=== PATIENT | female | born 1965 | race Caucasian/White ===

== ENCOUNTER 2019-11-26 16:07 | Inpatient (IN) | payer BC ==
[~2019-11-26] VITALS: Ht 175.3 cm; Wt 108.9 kg
[~2019-11-26 16:07] MED LIST: APAP650 PO; AUGMENTIN 875875 MG PO; BACTRIM DS TAB1 EACH PO; CENTRUM SILVER1 EAC2 PO; NORCO 10-325 T1 EACH PO; OXYCODONE HCL 55 MG PO; PRAVACHOL20 MG PO; TRAMADOL 50 MG50 MG PO; VIVELLE-DOT1 EAC1 TD
[2019-11-26] MEDS ORDERED: CELECOXIB200 MG PO (17:20)
[2019-11-26 17:41] LABS: HEMATOCRIT 40.2 % (37.0-47.0); HEMOGLOBIN 13.6 gm/dL (12.0-15.0); MCH 29.7 pg (26.0-34.0); MCHC 33.9 g/dL (28.0-37.0); MCV 87.6 fL (80.0-100.0); MPV 8.8 fl. (7.2-11.1); NUCLEATED RBCS 0 /100WBC; PLATELET COUNT* 245 thou/uL (150-400); RBC 4.58 mil/uL (4.20-5.00); RDW-CV 14.7 % (10.5-14.5); WBC 10.3 thou/uL (4.0-11.0)
[2019-11-26 17:42] LABS: CLARITY TURBID; SOURCE RIGHT KNEE; TOTAL CELL COUNT >66500 /mm3; TOTAL VOLUME 58 ml
[2019-11-26 17:43] LABS: BF RBC 45350 /mm3
[2019-11-26 18:30] LABS: BF MONOCYTES 9 %; BF POLYS 88 %
[2019-11-26 18:31] LABS: BF EOSINOPHILS 2 %; BF LYMPHOCYTES 1 %
[2019-11-26 18:34] LABS: ABSOLUTE NEUTROPHILS 9.7 thou/uL (1.6-8.1); PLATELET ESTIMATE ADEQUATE
[2019-11-26 18:35] LABS: ABSOLUTE LYMPHOCYTES 0.4 thou/uL (0.8-5.3); ABSOLUTE MONOCYTES 0.2 thou/uL (0.0-1.2); ANISOCYTOSIS 1+; POLYCHROMASIA Occasional
[2019-11-26 18:50] LABS: ESR (SEDRATE) 38 mm/hr (0-30)
[2019-11-26 21:49] LABS: CALCIUM 10.1 mg/dL (8.5-10.1); POTASSIUM 4.2 mmol/L (3.5-5.1)
[2019-11-26 21:50] VITALS: BP 109/56
[2019-11-27] VITALS: BP 100/51
[2019-11-27 03:56] VITALS: BP 104/60
[2019-11-27 04:11] LABS: HEMATOCRIT 34.4 % (37.0-47.0)
[2019-11-27 04:30] LABS: HEMOGLOBIN 11.5 gm/dL (12.0-15.0)
[2019-11-27 09:00] VITALS: BP 101/56
--- NOTE | 2019-11-27 12:12 | CON ---
[address] [address] CONSULTATION Name: DEEPTHI GRANT Room: [address] IN M.R.#: [id number] Admission: 11/26/19 Attend Phys: Vickie Pierre Discharge: Date of : 63 Report #: [id number] THIS REPORT FOR: //name// CC: Vickie Shin DATE OF SERVICE: 11/27/2019 INFECTIOUS DISEASE CONSULTATION ATTENDING PHYSICIAN: Vickie Storey MD REASON FOR EVALUATION: Right knee septic arthritis. HISTORY OF PRESENT ILLNESS: Chart reviewed, the patient examined. This 54-year-old woman with a known history of degenerative joint disease, requirement for intermittent corticosteroid injections to relieve her discomfort involving her right knee. She had one within the last few days, developed severe pain and difficulty ambulating. It is not clear if she had significant fevers. Did have anorexia with poor p.o. intake. Denies any significant pulmonary or gastrointestinal-related complaints. Due to concern about infectious complication, did undergo operative arthroscopic procedure and was found to have overt purulence. Fluid analysis showed greater than 66,500 white cells and 88% polys. White count was in the normal range. She is seen postop day-1. Was empirically started on vancomycin. She is lucid. ALLERGIES: CEPHALEXIN, WHICH CAUSES URTICARIA, DT TOXOIDS, INFLUENZA VACCINE. PAST MEDICAL HISTORY: As described, degenerative joint disease. CURRENT MEDICINES: Include estradiol, celecoxib, vancomycin, aspirin, tramadol, p.r.n. analgesics, antiemetics. 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 FAMILY HISTORY: Noncontributory. REVIEW OF SYSTEMS: As above. PHYSICAL EXAMINATION: GENERAL: She is alert, cooperative. She is in jdek-xa-ybwseucc distress secondary to her knee pain. VITAL SIGNS: Temperature 98, pulse 70, respirations 19, blood pressure 104/60. SKIN: Warm, dry, no rashes. HEENT: Normocephalic. Extraocular muscles intact. [place] [address] CONSULTATION Name: DEEPTHI GRANT Room: [address] IN [facility].#: [id number] Admission: 11/26/19 Attend Phys: Vickie Pierre Discharge: Date of : 63 Report #: [id number] NECK: Supple. LUNGS: Slightly diminished, otherwise clear breath sounds. HEART: Regular. I do not appreciate murmur. ABDOMEN: Obese, soft, nontender. EXTREMITIES: Right lower extremity has an extensive compression dressing throughout its length. GENITOURINARY AND RECTAL: Deferred. LABORATORY DATA: Initial CRP 273.8. Body fluid analysis greater than 66,500 white cells; 88% polys; 9% monos; 1% lymphs and 2% eos; white count of 45,350. CBC: White count of 10.3, H and H 13.6 and 40.2, platelets of 245. Does have lymphocytopenia of 400. Sed rate of 38. Electrolytes: Sodium 140, potassium 4.2, chloride 106, bicarb is 24, anion gap of 10, BUN and creatinine 18 and 1.0, glucose of 100, and estimated GFR of 58. ASSESSMENT: Right knee septic arthritis, seems to be a complication of previous arthro injection. We will await culture results. Continue empiric therapy with vancomycin. Most likely, it is a skin-related tegan, I presume a skin or staph etiology. Noted plans for additional debridement in the a.m. tomorrow. We will follow. <ELECTRONICALLY SIGNED> By: Louie Adams MD 11/27/19 1212 [id number] Adams MD /nt
[2019-11-27 16:00] VITALS: BP 108/63
[2019-11-27 20:51] VITALS: BP 89/46
[2019-11-28] VITALS: BP 99/57
[2019-11-28 04:00] VITALS: BP 118/61
[2019-11-28 05:34] LABS: HEMATOCRIT 30.7 % (37.0-47.0); HEMOGLOBIN 10.2 gm/dL (12.0-15.0)
[2019-11-28 08:30] VITALS: BP 116/57
[2019-11-28 15:30] VITALS: BP 106/54
[2019-11-28 20:00] VITALS: BP 124/56
[2019-11-29] VITALS: BP 115/56
[2019-11-29 04:00] VITALS: BP 112/56
[2019-11-29 06:22] LABS: HEMATOCRIT 28.2 % (37.0-47.0); HEMOGLOBIN 11.1 gm/dL (12.0-15.0); MCH 34.4 pg (26.0-34.0); MCHC 39.3 g/dL (28.0-37.0); MCV 87.4 fL (80.0-100.0); MPV 9.6 fl. (7.2-11.1); RBC 3.23 mil/uL (4.20-5.00); RDW-CV 15.4 % (10.5-14.5); WBC 10.9 thou/uL (4.0-11.0)
[2019-11-29 07:00] VITALS: BP 108/52
[2019-11-29 15:48] VITALS: BP 111/57
[2019-11-29 20:00] VITALS: BP 109/53
[2019-11-30] VITALS: BP 103/57
[2019-11-30 03:28] VITALS: BP 98/50
--- NOTE | 2019-11-30 11:47 | OP ---
[address] [address] OPERATIVE REPORT Name: DEEPTHI GRANT Room: [address] IN M.R.#: [id number] Admission: 11/26/19 Attend Phys: Vickie Pierre Discharge: Date of : 63 Report #: [id number] THIS REPORT FOR: //name// CC: Vickie Shin DICTATED BY: Anaya Whitlock DO DATE OF SERVICE: 11/26/2019 CHIEF COMPLAINT: Right knee pain and swelling. HISTORY OF PRESENT ILLNESS: The patient is a pleasant 54-year-old female who presented to [facility] with a 3-day history of right knee pain, swelling, and decreased ambulation. She had a steroid injection into the right knee joint on Saturday. She states that she is unable to ambulate on the knee. She has had pain with any motion of the right knee and has noticed swelling that is worsening, as the day progresses. She has been taking Celebrex and using compressive wraps. Aspirate taken in the office as purulent fluid and sent for culture. She denies any fevers, chills, or flu-like symptoms. DESCRIPTION OF PROCEDURE: The above-mentioned patient was taken to the operative suite. She was given general anesthesia and placed supine and dressed in the normal usual fashion. A timeout was given giving the correct date of , operative site, and allergies. Everybody in the room agreed upon the timeout. Two portals were made in the medial and lateral joint line. The arthroscopic camera was inserted after the trocar insertion. Purulent fluid was noted to exit the incision sites after the incisions were made. Purulent fluid was also visualized with the arthroscopic camera as well as synovium and synovitis on the suprapatellar pouch. 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 The medial joint line was then assessed. Purulent fluid was noted in the medial joint line as well. Then, the ACL was noted in the trochlear notch. No damage was noted to the ACL. The lateral joint line was then assessed. More purulent synovitis was noted in the lateral aspect of the knee. Synovium was debrided. We did not debride down to bone since it was deemed unnecessary with the synovium. We did take samples from the suprapatellar pouch. These will be sent for "aerobic, anaerobic, and fungal cultures." The patient will be admitted to the hospital with more than 1 midnight stay. She will be given IV antibiotics. Infectious Disease has been consulted since she does have only one kidney. We have to be cognizant of the antibiotics that we are using. Plan to take the patient back for repeat lavage on Saturday if deemed necessary by her clinical symptoms. The [place] [address] OPERATIVE REPORT Name: DEEPTHI GRANT Room: [address] IN M.R.#: [id number] Admission: 11/26/19 Attend Phys: Vickie Pierre Discharge: Date of : 63 Report #: [id number] with 4-0 suture. A compressive dressing was applied to the right lower extremity. She was taken back to the PACU in stable condition. <ELECTRONICALLY SIGNED> By: Misael Whitlock DO 11/30/19 1147 [id number] Whitlock DO /nt
[2019-11-30 17:01] VITALS: BP 93/48
[2019-12-01 09:00] VITALS: BP 119/69
[2019-12-01 10:29] VITALS: BP 93/48
[2019-12-01] MEDS ORDERED: ASPIRIN325 PO (10:38)
[2019-12-01] MEDS ORDERED: AMPICILLIN SODIU2 GM IV ×2 (10:38→10:43)
[2019-12-01] MEDS ORDERED: SENOKOT-S TABL1 EACH PO (10:38)
[2019-12-01] MEDS ORDERED: PERCOCET 5-3251 EACH PO (10:57)
--- NOTE | 2019-12-04 11:32 | OP ---
[address] [address] OPERATIVE REPORT Name: DEEPTHI GRANT Room: [address] IN M.R.#: [id number] Admission: 11/26/19 Attend Phys: Vickie Pierre Discharge: 12/01/19 Date of : 63 Report #: [id number] THIS REPORT FOR: //name// CC: Vickie Shin DATE OF SERVICE: 11/29/2019 PREOPERATIVE DIAGNOSIS: Continued right knee pain and swelling. HISTORY OF PRESENT ILLNESS: The patient is a pleasant 54-year-old female who has known right knee septic joint. She underwent a right knee irrigation and debridement on 11/26/2019. She has been on IV antibiotics and the culture demonstrates gram-positive cocci. She is going to go for a scheduled repeat irrigation and debridement at this time. SURGEON: Antonio Holguin DO. PUBLICATIONS SALES REPRESENTATIVE: Luz Maria Whitlock DO SECOND PUBLICATIONS SALES REPRESENTATIVE: Ministerio Lunsford DO DESCRIPTION OF PROCEDURE: The above-mentioned patient was taken to the operative suite and given general anesthesia. She was placed in the supine position in the typical fashion. A timeout was given and given the correct date of , operative site and all allergies. The patient was sterilely prepped and dressed in the typical fashion. The sutures were then removed and the same portal sites were utilized. The entire knee was viewed including the suprapatellar pouch, patellofemoral groove, medial and lateral menisci. Inflamed synovial tissue was debrided. No purulence was discovered. Repeat cultures were taken at this time. 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 The lateral joint line was assessed showing a small meniscus tear, which was debrided at this time, 20 mL of lidocaine were injected into the joint. Six liters of normal saline was utilized to irrigate the right knee through the arthroscopic system. We debrided down to synovium. The patient will return back to the floor. The patient's incisions were closed with 3-0 Vicryl. Xeroform was added along with 4 x 4s, soft roll and Best wrap. The patient was taken back to PACU in stable condition. She plans to return back to the floor. She will continue IV antibiotics per Infectious Disease. We will continue to monitor for improvement. <ELECTRONICALLY SIGNED> By: Marcio Anne DO 12/04/19 1132 [id number] [id number] Holguin DO /lynda
== END 2019-12-01 17:50 | disposition home or self-care (01) | DRG 487 ==
LOC: M.ORTHSURG 16:07
PROVIDERS: Orthopaedic Surgery; ADMIT Family Medicine
PROC: 0S9C4ZZ Drainage of Right Knee Joint, Percutaneous Endoscopic Approach (ICD-10-PCS; 2019-11-26)
PROC: 0SBC4ZZ Excision of Right Knee Joint, Percutaneous Endoscopic Approach (ICD-10-PCS; 2019-11-26)
PROC: 02HV33Z Insertion of Infusion Device into Superior Vena Cava, Percutaneous Approach (ICD-10-PCS; principal; 2019-11-27)
PROC: 0SBC4ZZ Excision of Right Knee Joint, Percutaneous Endoscopic Approach (ICD-10-PCS; 2019-11-29)
DX: M00.861 Arthritis due to other bacteria, right knee (principal); S83.281A Other tear of lateral meniscus, current injury, right knee, initial encounter; M17.11 Unilateral primary osteoarthritis, right knee; E66.9 Obesity, unspecified; G89.29 Other chronic pain; M65.862 Other synovitis and tenosynovitis, left lower leg; M94.261 Chondromalacia, right knee; Z88.1 Allergy status to other antibiotic agents; Z88.7 Allergy status to serum and vaccine; Z79.899 Other long term (current) drug therapy; Z68.35 Body mass index [BMI] 35.0-35.9, adult; Z87.891 Personal history of nicotine dependence; X58.XXXA Exposure to other specified factors, initial encounter; Y93.89 Activity, other specified; Y92.89 Other specified places as the place of occurrence of the external cause; Y99.8 Other external cause status